=== PATIENT | male | born 1965 | race African-American/Black ===

== ENCOUNTER 2017-08-15 18:14 | Emergency (ER) | payer SELFPAY ==
[2017-08-15 18:59] LABS: BASOPHILS % 0.6 (0.0-1.5); EOSINOPHILS % 3.1 % (0.0-6.8); MEAN CORPUSCULAR HEMOGLOBIN 30.2 pg (28.0-34.0); MEAN CORPUSCULAR VOLUME 92.5 fl (80.0-100.0); MONOCYTES % 3.9 % (0.0-11.0); NEUTROPHILS # 4.6 # k/uL (1.4-7.7)
[2017-08-15 19:01] LABS: APPEARANCE,URINE Clear (CLEAR); COLOR,URINE Yellow (YELLOW); OCCULT BLOOD,URINE Negative (NEGATIVE); PH URINE 5.5 (5.0 - 8.0)
[2017-08-15 19:03] LABS: AMPHETAMINE NEGATIVE ng/mL (<1000); BARBITURATES NEGATIVE ng/mL (<300); CANNABINOIDS NON NEGATIVE ng/mL (< 50); COCAINE NON NEGATIVE ng/mL (<300); METHAMPHETAMINE NEGATIVE ng/mL (<1000); METHYLENEDIOXYMETHAMPHETAMINE NEGATIVE ng/mL (<500); OPIATES NEGATIVE ng/mL (<300)
[2017-08-15 19:17] LABS: eGFR (African) > 60; eGFR (Non-African) > 60
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
[2017-08-15] MEDS: INSULIN REGULAR, HUMAN 100 UNIT/ML 3ML VIAL SQ ONE (19:30)
[2017-08-15] MEDS: KETOROLAC TROMETHAMINE 60 MG/2 ML VIAL IM ONE (19:41)
--- NOTE | 2017-08-15 19:49 | Diagnostic Imaging Report ---
[facility] [id number] [facility] [id number] Report Submission Date: Aug 15, 2017 7:10:22 PM CDT Patient Study Name: CHERYL ARNOLD Date: Aug 15, 2017 6:45:26 PM CDT Modality Type: CR Gender: M Description: SPINE : 65 Institution: [facility] Physician: MEG MERCHANT - ER Examination: Cervical spine History: Trauma Comparison exams: None available Findings: 3 views of the cervical spine demonstrate normal height and alignment. No anterior compression. No abnormal listhesis. Osteophyte formation and disc space narrowing C5/C6 No odontoid abnormality. No prevertebral abnormality Impression: Degenerative changes. No acute osseous abnormality. Electronically signed on Aug 15, 2017 7:10:22 PM CDT by: Mele VERMA
[2017-08-15 20:31] VITALS: BP 190/98
== END 2017-08-15 20:29 | disposition home or self-care (01) ==
LOC: ED 18:14
DX: S13.4XXA Sprain of ligaments of cervical spine, initial encounter (principal); V89.2XXA Person injured in unspecified motor-vehicle accident, traffic, initial encounter; Y93.9 Activity, unspecified; Y99.9 Unspecified external cause status; R73.9 Hyperglycemia, unspecified
CPT/HCPCS: 72040; 80053; 80320; 80377; 81002; 85025; J1815; J1885; 96372; 99283; G0480; G0481